=== PATIENT | female | born 1980 | race Caucasian/White ===

== ENCOUNTER 2021-08-05 11:01 | Outpatient (CLI) | payer BC, SELFPAY ==
--- NOTE | ~2021-08-05 | US_ITS ---
EXAMINATION: US thyroid DATE: 08/05/2021 11:30 INDICATION: Nontoxic goiter. TECHNIQUE: Multiple ultrasound images of the thyroid were obtained. COMPARISON: None. FINDINGS: The right thyroid lobe measures 4.3 x 1.6 x 1.1 cm. The left thyroid lobe measures 4.0 x 1.6 x 1.3 c m. There is normal echotexture and echogenicity throughout the thyroid gland. No discrete nodules id entified. Normal vascular flow is present. IMPRESSION: 1. Normal thyroid. Reviewed, dictated and finalized at location A. [employer] IMPRESSION: 1. Normal thyroid.
== END 2021-08-05 11:02 | disposition home or self-care (01) ==
LOC: ANHIMG 11:13
PROVIDERS: PCP Nurse Practitioner Family
DX: E04.9 Nontoxic goiter, unspecified (principal)
CPT/HCPCS: 76536